=== PATIENT | female | born 2000 | race Caucasian/White ===

== ENCOUNTER 2022-06-16 18:54 | Emergency (ER) | payer MEDICAID ==
--- NOTE | 2022-06-16 19:29 | ED Physician Documentation ---
PD HPI NVD - Stated complaint Stated Complaint: V/D - Chief complaint Chief Complaint: Abd Pain - History obtained from History obtained from: Patient - History of Present Illness Timing - onset: Today Timing - duration: Days (8) Timing - details: Abrupt onset, Still present Associated symptoms: Abdominal pain (cramping), Loss of appetite. No: Fever, Hematemesis, Near syncope / syncope Contributing factors: Bad food (she thinks a hot dog she ate last night might have been bad.). No: Sick contact Improved by: No: Vomiting Worsened by: Eating Similar symptoms before: Has not had sx before Review of Systems Constitutional: denies: Fever, Chills GI: reports: Nausea, Vomiting, Diarrhea (some watery/loose this evening too). denies: Hematemesis PD PAST MEDICAL HISTORY - Past Medical History Cardiovascular: None Respiratory: None Endocrine/Autoimmune: None GI: None [employer]: None Psych: None Musculoskeletal: None - Past Surgical History Past Surgical History: Yes HEENT: Tonsil/Adenoidectomy - Present Medications Home Medications: Ambulatory Orders Medication Instructions Recorded Confirmed Diphenoxylate/Atropine [Lomotil] 1 each PO QID PRN #12 tablet 06/16/22 Famotidine [Pepcid] 20 mg PO DAILY #20 tablet 06/16/22 Ondansetron Odt [Zofran] 4 mg TL Q6H PRN #10 tablet 06/16/22 Promethazine [Phenergan] 25 mg PO Q6H PRN #10 tab 06/16/22 - Allergies Allergies/Adverse Reactions: Allergies Allergy/AdvReac Type Severity Reaction Status Date / Time No Known Drug Allergies Allergy Verified 06/16/22 19:10 - Social History Does the pt smoke?: No Smoking Status: Never smoker Does the pt drink ETOH?: No Does the pt have substance abuse?: No - Immunizations Immunizations are current?: Yes - POLST Patient has POLST: No PD ED PE NORMAL - Vitals Vital signs reviewed: Yes - General General: Alert and oriented X 3, Well developed/nourished, Other (appears uncomfortable and is actively heaving/vomiting in ER. ) - Neck Neck: Supple, no meningeal sign, No adenopathy - Cardiac Cardiac: No murmur. No: RRR (regular but tachycardic) - Respiratory Respiratory: Clear bilaterally - Abdomen Abdomen: Soft, Non distended, Other (obese and generally tender, but mainly periumbilcial/center. not particularly tender RUQ/RLQ. ) - Derm Derm: Normal color, Warm and dry Results - Vitals Vitals: Vital Signs - 24 hr 06/16/22 06/16/22 06/16/22 19:08 20:07 20:56 Temperature 35.8 C L Heart Rate 129 H 109 H 104 H Respiratory 26 H 20 20 Rate Blood Pressure 170/92 H 138/87 H 161/75 H O2 Saturation 97 100 100 06/16/22 21:27 Temperature 37.4 C Heart Rate Respiratory Rate Blood Pressure O2 Saturation Oxygen O2 Source Room air - Labs Labs: Laboratory Tests 06/16/22 06/16/22 19:55 20:16 WBC 11.1 H RBC 5.95 H Hgb 15.8 Hct 48.4 H MCV 81.3 MCH 26.6 L MCHC 32.6 RDW 12.9 Plt Count 338 MPV 9.7 Neut # (Auto) 9.8 H Lymph # (Auto) 0.5 L [place] # (Auto) 0.6 Eos # (Auto) 0.0 Baso # (Auto) 0.0 Absolute Nucleated RBC 0.00 Nucleated RBC % 0.0 Sodium 136 Potassium 3.5 Chloride 103 Carbon Dioxide 22 Anion Gap 11.0 BUN 21 H Creatinine 0.5 Estimated GFR (MDRD) 153 Glucose 126 H Calcium 9.1 Magnesium 1.5 L Total Bilirubin 1.5 H AST 40 ALT 75 H Alkaline Phosphatase 63 Total Protein 8.1 Albumin 4.3 Globulin 3.8 Albumin/Globulin Ratio 1.1 Lipase 32 PD Medical Decision Making - ED course Complexity details: re-evaluated patient (feeling better without pain nor nauseea. able to keep some fluids and bites of crackers down. feeling able to go home. Mom is here with her and will take her. ), considered differential (seems likely food related or viral gE given abrupt onset and both vomiting and diarrhea. Will reassess abd exam when nausea is improved. ), d/w patient Drug Therapy Requiring Monitoring for Toxicity: given IV fluids as well as Zofran 4 mg IV and toradol 15 mg iv for pains. Dilau did 0.5 mg iv for pain without any ill side effects. Improvement in pain. Had moderate improvement in nausea. follow up dose of Inapsine 1.25 mg iv improved nausea much more. antacids and anti-diarrheal given PO. Departure - Departure Disposition: 01 Home, Self Care Clinical Impression: Nausea and vomiting, Hematemesis/vomiting blood Condition: Stable Record reviewed to determine appropriate education?: Yes Instructions: ED Food Poison Or Gastroenteritis Prescriptions: Diphenoxylate/Atropine [Lomotil] 1 each PO QID PRN #12 tablet PRN Reason: Diarrhea Famotidine [Pepcid] 20 mg PO DAILY #20 tablet Promethazine [Phenergan] 25 mg PO Q6H PRN #10 tab PRN Reason: Nausea / Vomiting Ondansetron Odt [Zofran] 4 mg TL Q6H PRN #10 tablet PRN Reason: Nausea / Vomiting Comments: The onset and severity of your symptoms with vomiting and diarrhea are most suggestive of a viral gastroenteritis or possible food poisoning. Majority the time this is just a day or 2 duration of illness. If you are vomiting very hard and repetitively, it is easy for the stomach to get raw and have some bleeding to it. Your blood count is good and your vital signs are good. Typically the bleeding will stop once the vomiting and irritation has decreased. It can take several days or week or more to be able to get back to normal food intake and such. He want to start with frequent fluids and bland food and easy to digest foods such as rice is [place] is in starches. Progress as tolerated. Broths or soup are good as well. I would suggest famotidine acid reducing medicine twice daily for the next several days and then once daily for another 2 to 3 weeks. For tonight and tomorrow use the ondansetron/Zofran every 4-6 hours if needed for nausea and vomiting. We did give you an antidiarrhea medicine here as well. I wrote prescriptions and sent them to [facility] for the ondansetron nausea medicine and also promethazine nausea medicine in case the ondansetron is not working well enough. Also Lomotil antidiarrhea medicine. Small frequent fluids through the night and into tomorrow. Recheck if not controlled vomiting at home. You will likely have some dark stool tomorrow and the next day due to some of the bleeding from your stomach. Forms: Activity restrictions Discharge Date/Time: 06/16/22 21:27
[2022-06-16] MEDS ORDERED: HYDROmorphone 1 MG/ML CARPUJECT IVP STA (19:40)
[2022-06-16] MEDS ORDERED: SODIUM CHLORIDE 0.9% 1,000 ML IV STA ×2 (19:40→20:27)
[2022-06-16] MEDS ORDERED: ONDANSETRON 4 MG/2 ML VIAL IVP STA (19:40)
[2022-06-16] MEDS ORDERED: FAMOTIDINE 20 MG/2 ML VIAL IVP STA (19:41)
[2022-06-16 20:01] LABS: BASOPHILS % (AUTO) 0.4 %; EOSINOPHILS % (AUTO) 0.3 %; HCT - HEMATOCRIT 48.4 % (37.0-47.0); HGB - HEMOGLOBIN 15.8 g/dL (12.0-16.0); LYMPHOCYTES # (AUTO) 0.5 10^3/uL (1.5-3.5); LYMPHOCYTES % (AUTO) 4.5 %; MEAN CORPUSCULAR HEMOGLOBIN 26.6 pg (27.0-31.0); MEAN CORPUSCULAR HGB CONC 32.6 g/dL (32.0-36.0); MEAN CORPUSCULAR VOLUME 81.3 fL (81.0-99.0); MEAN PLATELET VOLUME 9.7 fL (7.9-10.8); MONOCYTES # (AUTO) 0.6 10^3/uL (0.0-1.0); MONOCYTES % (AUTO) 5.7 %; NEUTROPHILS # (AUTO) 9.8 10^3/uL (1.5-6.6); NEUTROPHILS % (AUTO) 88.6 %; PLT - PLATELET COUNT 338 10^3/uL (130-450); RED BLOOD COUNT 5.95 10^6/uL (4.20-5.40); RED CELL DISTRIBUTION WIDTH 12.9 % (12.0-15.0); WHITE BLOOD COUNT 11.1 x10^3/uL (4.8-10.8)
[2022-06-16] MEDS ORDERED: MAG HYDROX/AL HYDROX/SIMETH 30 ML UDC PO STA (20:27)
[2022-06-16] MEDS ORDERED: DROPERIDOL 5 MG/2 ML VIAL IVP STA (20:27)
[2022-06-16 20:36] LABS: ALBUMIN 4.3 g/dL (3.2-5.5); ALBUMIN/GLOBULIN RATIO 1.1 (1.0-2.2); BILIRUBIN,TOTAL 1.5 mg/dL (0.2-1.0); CALCIUM 9.1 mg/dL (8.5-10.3); CREATININE 0.5 mg/dL (0.4-1.0); MAGNESIUM 1.5 mg/dL (1.7-2.8); POTASSIUM 3.5 mmol/L (3.5-5.0); TOTAL PROTEIN 8.1 g/dL (6.7-8.2)
[2022-06-16 20:57] VITALS: BP 161/75
[2022-06-16] MEDS ORDERED: DIPHENOX/ATROPINE 2.5/0.025 MG TABLET PO STA (21:15)
[2022-06-16] MEDS ORDERED: ONDANSETRON ODT 4 MG Prepack 2 TL PRN (21:16)
== END 2022-06-16 21:27 | disposition home or self-care (01) ==
LOC: ED 18:54
DX: K92.0 Hematemesis (principal); R19.7 Diarrhea, unspecified
CPT/HCPCS: 36415; 80053; 83690; 83735; 85025; 96361; 96374; 96375; 99283; 99284; A9270; J1170